=== PATIENT | female | born 1960 ===

== ENCOUNTER 2023-09-17 07:05 | Day surgery (SDC) | payer MEDICARE ==
[~2023-09-17] VITALS: Ht 152.4 cm; Wt 78.7 kg
[2023-09-17] MEDS ORDERED: propofoL 50 ML IV ONE (08:13)
[2023-09-17] MEDS ORDERED: Lactated Ringer's 1,000 ML IV ONE ×2 (08:13→08:46)
[2023-09-17] MEDS ORDERED: Cyclobenzaprine5 MG (08:14)
[2023-09-17] MEDS ORDERED: CHOLESTYRAMI239.4 G1 (08:14)
[2023-09-17] MEDS ORDERED: ERGO400 (08:14)
[2023-09-17] MEDS ORDERED: LOPE2C (08:15)
[2023-09-17] MEDS ORDERED: ESCI10 (08:15)
[2023-09-17] MEDS ORDERED: LABE200 (08:15)
[2023-09-17] MEDS ORDERED: GABA300 (08:15)
[2023-09-17] MEDS ORDERED: LOSARTAN POTAS100 M1 (08:15)
[2023-09-17] MEDS ORDERED: Bentyl10 MG (08:15)
[2023-09-17] MEDS ORDERED: PANT20 (08:16)
[2023-09-17] MEDS ORDERED: Primidone50 MG (08:16)
[2023-09-17] MEDS ORDERED: CARAFATE1 GM (08:17)
[2023-09-17] MEDS ORDERED: ZOLEDRONIC ACID (08:17)
== END 2023-09-17 10:00 | disposition home or self-care (01) ==
LOC: ORSCSDS 07:05
PROVIDERS: Internal Medicine Gastroenterology
PROC: 0DBL8ZX Excision of Transverse Colon, Via Natural or Artificial Opening Endoscopic, Diagnostic (ICD-10-PCS; principal; 2023-09-17 08:45)
PROC: 0DBN8ZX Excision of Sigmoid Colon, Via Natural or Artificial Opening Endoscopic, Diagnostic (ICD-10-PCS; principal; 2023-09-17 08:45)
PROC: 0DB58ZX Excision of Esophagus, Via Natural or Artificial Opening Endoscopic, Diagnostic (ICD-10-PCS; principal; 2023-09-17 08:45)
DX: K52.9 Noninfective gastroenteritis and colitis, unspecified (principal); Z85.038 Personal history of other malignant neoplasm of large intestine; Z86.010 Personal history of colon polyps; K22.70 Barrett's esophagus without dysplasia; R13.14 Dysphagia, pharyngoesophageal phase; K21.9 Gastro-esophageal reflux disease without esophagitis; D12.3 Benign neoplasm of transverse colon; D12.5 Benign neoplasm of sigmoid colon; Z90.49 Acquired absence of other specified parts of digestive tract; Z79.899 Other long term (current) drug therapy; E66.9 Obesity, unspecified; Z68.36 Body mass index [BMI] 36.0-36.9, adult
CPT/HCPCS: 88305; J2704; J7120